=== PATIENT | male | born 1960 ===

== ENCOUNTER 2017-02-23 06:44 | Day surgery (SDC) | payer OTHER ==
[2017-02-23 07:48] VITALS: BMI 26.6
[2017-02-23] MEDS ORDERED: Propofol 10 mg/ml Inj (20 ML) ONE (09:08)
[2017-02-23] MEDS ORDERED: Lidocaine Hydrochloride 5 ML INJ ONE (09:08)
[2017-02-23] MEDS ORDERED: Lactated Ringer's 500 ML IV SCH (09:15)
--- NOTE | 2017-02-23 09:27 | CP.SDSHP ---
Same Day Surgery H & P - History Proposed Procedure: egd. colonoscopy Pre-Op Diagnosis: heartburn. screening for colon cancer - Previous Medical/Surgical History Cardiac: Other (hyperlipidemia) Misc: Other (gout, hyperlipidemia) - Allergies Allergies: Allergies No Known Allergies Allergy (Verified 02/23/17 07:47) - Physical Exam Vital Signs: Vital Signs 02/23/17 02/23/17 07:45 09:18 Temperature 97.0 F L 97.0 F L Pulse Rate 78 78 Respiratory 19 19 Rate Blood Pressure 117/83 117/83 O2 Sat by Pulse 98 98 Oximetry Mental Status: Alert & Oriented x3 Neuro: WNL Heart: WNL Lungs: WNL GI: WNL - Impression Impression: heartburn. screening for colon cancer Pt. Evaluated Today:Candidate for Anesthesia & Procedure: Yes - Date & Time Date: 02/23/17 Time: 09:27 Short Stay Discharge - Short Stay Discharge Admitting Diagnosis/Reason for Visit: HEARTBURN,EPIGASTRIC PAIN, ABDOMINAL DISTENSION Disposition: HOME/ ROUTINE
[2017-02-23 10:21] VITALS: TEMP 98.6
[2017-02-23 10:44] VITALS: RESP 12; O2SAT 100
[2017-02-23 10:51] VITALS: BP 107/64; PULSE 73
== END 2017-02-23 10:49 | disposition home or self-care (01) ==
LOC: C.ENDO 06:44
PROVIDERS: ATTEND Internal Medicine Gastroenterology
DX: K21.9 Gastro-esophageal reflux disease without esophagitis (principal); K29.60 Other gastritis without bleeding; K64.8 Other hemorrhoids
CPT/HCPCS: 43239; 45378; 88305; J2704; J7120